=== PATIENT | male | born 1980 | race Caucasian/White ===

== ENCOUNTER 2016-12-09 17:13 | Inpatient (IN) | payer OTHER ==
[~2016-12-09] VITALS: Ht 177.8 cm; Wt 59.0 kg
[2016-12-09 23:35] LABS: *AMPHETAMINE, URINE POSITIVE (NEGATIVE); *BARBITURATE, URINE NEGATIVE (NEGATIVE); *CANNABINOID, URINE NEGATIVE (NEGATIVE); *COCCAINE, URINE NEGATIVE (NEGATIVE); *OPIATE, URINE POSITIVE (NEGATIVE); *PHENCYCLIDINE SCREEN,URINE NEGATIVE (NEGATIVE)
[2016-12-10] VITALS: BP 138/74
--- NOTE | 2016-12-10 | NUR ---
ADMISSION NOTE : Pt. is 36 years old male admitted on 12/09/2016 at 23:27 for opiates, methamphetamine dependency. Pt. reports PCN and Shellfish allergies, is on Regular diet, Full Code; pt. has history of visual hallucinations in 2014, no seizures history. Primary Care Provider is Dr. Light from [place], [place]. Pt. was able to provide urine drug screen : positive for opiates, amphetamine. Pt. stated to be in fdc for 1 month in the past, no hospitalizations or falls within past 12 months. Pt. is oriented to the unit and his room, encouraged to notify staff with any concerns. Pt. denies to have home medications. Upon admission YX=660/72, HR=68/min, Temp=98.0, RR=16 , breathing unlabored and even, FpI7=639% with RA, COWS=3, Tlzslz=[id number], Dgktaa=395. Pt. complains of increased level of anxiety= 4/10, mild muscle spasm.No SI/HI at this moment. Skin is dry, warm and intact, last BM on 12/09/2016. Education provided on Hep.C, Drugs overdose, seizures, medications side effects. Safety measures in place : bed on lowest position with side rails x2 up for safety, call light within reach. Will continue to monitor closely and offer help. Substance Abuse History is as follow : 1.Heroin 6 doses QD smoking since 08/2016, last dose used on 11/11/2016, using Heroin since 03/2016. 2.Methamphetamine 3 doses QW smoking/snorting since07/2016, last dose on 12/04/2016 , using since 2007. 3.Vicodin 100mg QD PO since 2014, last use on 12/08/2016. Using Vicodin since 2009. 4.Tobacco 20 cigarettes QD since 2012, last use on 12/09/2016 Past Medical History : Asthma since childhood, Anxiety, Depression per PCP. Tx History : This admission is first attempt for detoxication. Family History : HTN, DM, Asthma, CAD, ETOH abuse.
[2016-12-10] MEDS ORDERED: MAGNESIUM HYDROXIDE 30 ML LIQUID UDC PO PRN (00:45)
[2016-12-10] MEDS ORDERED: BUPRENORPHINE HCL 2 MG TAB.SUBL SL PRN (00:45)
[2016-12-10] MEDS ORDERED: DICYCLOMINE HCL 20 MG TABLET PO PRN (00:45)
[2016-12-10] MEDS ORDERED: LOPERAMIDE HCL 2 MG CAPSULE PO PRN ×2 (00:45)
[2016-12-10] MEDS ORDERED: HYDROXYZINE PAMOATE 25 MG CAPSULE PO PRN (00:45)
[2016-12-10] MEDS ORDERED: MIRALAX 17 GM POWD.PACK PO PRN (00:45)
[2016-12-10] MEDS ORDERED: IBUPROFEN 400 MG TABLET PO PRN (00:45)
[2016-12-10] MEDS ORDERED: ACETAMINOPHEN 325 MG TABLET PO PRN ×2 (00:45→17:15)
[2016-12-10] MEDS ORDERED: diphenhydrAMINE 50 MG CAPSULE PO PRN (00:45)
[2016-12-10] MEDS ORDERED: CLONIDINE HCL 0.1 MG TABLET PO PRN (00:45)
[2016-12-10] MEDS ORDERED: MAG HYDROX/AL HYDROX/SIMETH 30 ML LIQUID UDC PO PRN (00:45)
[2016-12-10] MEDS ORDERED: PROMETHAZINE HCL 25 MG/1 ML VIAL IM PRN (00:45)
[2016-12-10] MEDS ORDERED: ONDANSETRON ODT 4 MG TAB.RAPDIS SL PRN (00:45)
[2016-12-10 02:14] LABS: BASOPHILS # (AUTO) 0.1 K/uL (0.0-0.2); BASOPHILS % (AUTO) 0.7 % (0.0-2.0); EOSINOPHILS # (AUTO) 0.5 K/uL (0.0-0.7); EOSINOPHILS % (AUTO) 5.5 % (0.0-7.0); HEMATOCRIT 44.3 % (40.0-50.0); HEMOGLOBIN 14.8 g/dL (14.0-18.0); LYMPHOCYTES # (AUTO) 1.9 K/uL (0.8-4.8); LYMPHOCYTES % (AUTO) 22.6 % (20.5-51.5); MEAN CORPUSCULAR HEMOGLOBIN 29.2 uug (27.0-31.0); MEAN CORPUSCULAR HGB CONC 33 g/dL (32.0-37.0); MEAN CORPUSCULAR VOLUME 87.2 fL (82.0-92.0); MONOCYTES # (AUTO) 0.6 K/uL (0.1-1.30); MONOCYTES % (AUTO) 6.9 % (0.0-11.0); NEUTROPHILS # (AUTO) 5.3 K/uL (1.8-8.9); NEUTROPHILS % (AUTO) 64.3 % (38.5-71.5); PLATELET COUNT (AUTO) 217 K/uL (150-450); RED BLOOD CELL COUNT(AUTO) 5.08 MIL/uL (4.70-6.10); WHITE BLOOD COUNT (AUTO) 8.4 K/uL (4.0-11.2)
[2016-12-10 02:45] LABS: ETHANOL < 3 MG/DL (0-0)
[2016-12-10 02:57] LABS: ALANINE AMINOTRANSFERASE 27 U/L (16-63); ALBUMIN 4.1 g/dL (3.4-5.0); ALKALINE PHOSPHATASE 78 U/L (50-136); AMYLASE 68 U/L (25-115); ASPARTATE AMINOTRANSFERASE 18 U/L (15-37); BILIRUBIN,TOTAL 0.3 mg/dL (0.2-1.0); CALCIUM 8.4 mg/dL (8.5-10.1); CARBON DIOXIDE 32 mmol/L (21-32); CHLORIDE 105 mmol/L (98-107); CREATININE 0.8 mg/dL (0.6-1.3); GFR 109 mL/min (>60); GLUCOSE 87 mg/dL (74-106); MAGNESIUM 2.2 mg/dL (1.8-2.4); POTASSIUM 3.9 mmol/L (3.5-5.1); SODIUM SERUM 143 mmol/L (136-145); TOTAL PROTEIN, SERUM 7.6 g/dL (6.4-8.2); UREA NITROGEN, BLOOD 9 mg/dL (7-18)
--- NOTE | 2016-12-10 03:00 | NUR ---
PRN MOTRIN PRN Motrin p.o. given per patient c/o mild headache, 7/10 pain scale. Safety measures in place : bed on lowest position with side rails x2 up for safety, call light within reach. Will continue to monitor closely and offer help.
[2016-12-10 03:41] LABS: HIV-1 p24 ANTIGEN NON REACTIVE (NONREACTIVE); HIV-1/2 ANTIBODY NON REACTIVE (NONREACTIVE)
[2016-12-10 03:44] LABS: THYROID STIMULATING HORMONE 1.311 mIU/mL (0.358-3.740)
[2016-12-10] MEDS ORDERED: IBUPROFEN 400 MG TABLET ONE (03:45)
--- NOTE | 2016-12-10 03:46 | NUR ---
REASSESSMENT PRN DAWSON Pt. is able to rest quietly , states decreased level of pain to 3/10, RR=16, breathing unlabored and even. Safety measures in place : bed on lowest position with side rails x2 up for safety, call light within reach. Will continue to monitor closely and offer help.
[2016-12-10 03:47] LABS: LIPASE 215 U/L (73-393)
[2016-12-10 04:00] VITALS: BP 137/76
--- NOTE | 2016-12-10 06:53 | NUR ---
END OF SHIFT Pt. is 36 years old male admitted on 12/09/2016 at 23:27 for opiates, methamphetamine dependency. Pt. reports PCN and Shellfish allergies, is on Regular diet, Full Code; pt. has history of visual hallucinations in 2014, no seizures history. Pt remains compliant with the treatment plan. Pt denies nausea, vomiting and diarrhea. PRN MOTRIN given during my shift. V/S remain WNL. RR=16, even and unlabored, lungs clear upon auscultation, abdomen soft and non- distended. Pt denies nausea, vomiting and diarrhea. LAST COWS= 3 at 0400 , JJFMYX=133 ml, voided x 3, slept 3 hours. Safety measures in place : bed on lowest position with side rails x2 up for safety, call light within reach. Will continue to monitor closely and offer help.
--- NOTE | 2016-12-10 07:15 | NUR ---
start of shift note: pt is a new admission, and is admitted to [facility] for opiate/meth withdrawal/dependence. pt is in stable condition at this time. will monitor pt for any changes. will assist pt in managing withdrawal symptoms. pt's last cows was a 3 and slept for 3 hrs. will re-orientate pt to unit and encourage pt to join activities and groups.
--- NOTE | 2016-12-10 09:16 | NUR ---
PRN ADMINISTRATION: PT STATED HE STARTED FEELING SICK, PT WITH COMPLAINTS OF GENERALIZED BODY PAIN, 9/10, CHILLS, AND NAUSEA. PT'S COW IS 12. AT THIS TIME WILL RE-ASSESS PT AND INFORM MD.
[2016-12-10] MEDS: MULTIVITAMINS,THERAPEUTIC TABLET PO SCH (09:18)
[2016-12-10 09:21] VITALS: BP 108/78
--- NOTE | 2016-12-10 09:45 | NUR ---
PRN RE-ASSESSMENT: SUBUTEX WAS EFFECTIVE, PT WAS PLACED ON A MODIFIED 4 DAY SUBUTEX TAPER. PT TOLERATED SUBUTEX WELL NO A/R NOTED.
[2016-12-10 14:08] VITALS: BP 110/78
[2016-12-10] MEDS ORDERED: ACETAMINOPHEN ES 500 MG TABLET PO SCH (15:00)
[2016-12-10] MEDS ORDERED: GABAPENTIN 300 MG CAPSULE PO SCH (15:00)
[2016-12-10] MEDS: LIDOCAINE 5% PATCH TD SCH (15:33)
[2016-12-10] MEDS: BUPRENORPHINE HCL 2 MG TAB.SUBL SL SCH ×2 (15:33→21:31)
[2016-12-10] MEDS ORDERED: ALBUTEROL SULFATE 2.5 MG/3 ML NEBU NEB PRN (15:45)
[2016-12-10 17:35] VITALS: BP 126/73
--- NOTE | 2016-12-10 18:26 | NUR ---
END OF SHIFT NOTE: PT IS A 36 YEAR OLD MALE ADMITTED TO [facility] FOR OPIATE/METH WITHDRAWAL/DEPENDENCE. PT IS IN STABLE CONDITION AT THIS TIME NO S/S OF PAIN OR DISCOMFORT. PT WAS STARTED ON A 4 MODIFIED SUBUTEX TAPER. PT IS TOLERATING SUBUTEX TAPER WELL NO A/R REACTION NOTED. PT'S LAST COWS IS 2. WILL ENDORSE PT TO FIELD ADJUSTER NURSE.
[2016-12-10] MEDS: METHOCARBAMOL 750 MG TABLET PO PRN (18:39)
--- NOTE | 2016-12-10 18:39 | NUR ---
PRN ADMINISTRATION: PT WITH COMPLAINTS OF LOWER BACK PAIN 05/01, HEAT PACK AND ROBAXIN WAS ADMINISTERED WILL ENDORSE TO CLINICAL LABORATORY AIDE EFFECTIVENESS.
--- NOTE | 2016-12-10 19:10 | NUR ---
START OF SHIFT : Pt. is 36 years old male admitted on 12/09/2016 at 23:27 for opiates, methamphetamine dependency. Pt. reports PCN and Shellfish allergies, is on Regular diet, Full Code; pt. has history of visual hallucinations in 2014, no seizures history. LAST COWS= 2 at 1600 ,Pt remains compliant with the treatment plan. Pt denies nausea, vomiting and diarrhea. No PRNs were given during my shift. V/S remain WNL. RR=16, even and unlabored, lungs clear upon auscultation, abdomen soft and non- distended. Pt denies nausea, vomiting and diarrhea. Safety measures in place : bed on lowest position with side rails x2 up for safety, call light within reach. Will continue to monitor closely and offer help.
--- NOTE | 2016-12-10 19:34 | NUR ---
REASSESSMENT STEPHANY Patient states decreased level of pain , 3/10, decreased level of muscle spasm, is resting quietly, RR=16 , breathing unlabored and even. Safety measures in place : bed on lowest position with side rails x2 up for safety, call light within reach. Will continue to monitor closely and offer help.
[2016-12-10 20:00] VITALS: BP 140/85
--- NOTE | 2016-12-11 06:49 | NUR ---
END OF SHIFT NOTE : Pt. is 36 years old male admitted on 12/09/2016 at 23:27 for opiates, methamphetamine dependency. Pt. reports PCN and Shellfish allergies, is on Regular diet, Full Code; pt. has history of visual hallucinations in 2014, no seizures history. Pt remains compliant with the treatment plan. V/S remain WNL. RR=16, even and unlabored, lungs clear upon auscultation, abdomen soft and non- distended. Pt denies nausea, vomiting and diarrhea. LAST COWS= 2 at 0400 , XSYIAL=650 ml, voided x 1, slept 7 hours. Safety measures in place : bed on lowest position with side rails x2 up for safety, call light within reach. Will continue to monitor closely and offer help.
--- NOTE | 2016-12-11 07:30 | NUR ---
START OF SHIFT NOTE: RECEIVED PT FROM CRADLE SLIDE MAKER NURSE, PT IS IN STABLE CONDITION AT THIS TIME. PT WITH CONSTANT BACK PAIN.PT IS ADMITTED TO [facility] FOR OPIATE/METH WITHDRAWAL/DEPENDENCE. PT LAST COWS WAS 2 AND SLEPT 7 HRS. PT IS TOLERATING TAPER WELL NO A/R NOTED. WILL CONTINUE TO MONITOR PT FOR ANY CHANGES AND WILL CONTINUE TO MEET PTS NEEDS
[2016-12-11] MEDS: METHOCARBAMOL 750 MG TABLET PO PRN (07:52)
--- NOTE | 2016-12-11 07:52 | NUR ---
PRN ADMINISTRATION: ROBAXIN WAS ADMINISTERED PT WITH DISCOMFORT AND PAIN TO BACK AREA, PAIN SCALE 6/10, HEAT PACK WAS ALSO GIVEN TO PT TO ASSISTANCE WITH RELIEVING PAIN.
--- NOTE | 2016-12-11 08:30 | NUR ---
PRN ADMINISTRATION: PT STATED WITH MINIMAL HELP PAIN IS AT 4/10. STATED HE WILL WAIT FOR LIDOCAINE PATCH AND SUBUTEX TO SEE IF IT WILL ASSIST WITH PAIN.
[2016-12-11 09:00] VITALS: BP 109/68
[2016-12-11] MEDS ORDERED: BUPRENORPHINE HCL 2 MG TAB.SUBL SL SCH (09:00)
[2016-12-11] MEDS ORDERED: TUBERCULIN,PURIF.PROT.DERIV. 5 TU/0.1 ML TEST ID ONE (09:00)
[2016-12-11] MEDS: MULTIVITAMINS,THERAPEUTIC TABLET PO SCH (09:09)
[2016-12-11] MEDS: LIDOCAINE 5% PATCH TD SCH (09:10)
[2016-12-11] MEDS: ESCITALOPRAM OXALATE 10 MG TABLET PO SCH (12:12)
[2016-12-11] MEDS: KETOROLAC TROMETHAMINE 30 MG INJ IM PRN (12:13)
--- NOTE | 2016-12-11 12:13 | NUR ---
PRN TORADOL ADMINISTERED: PT STATED HE TRIED TO MANAGE THE PAIN, BUT CAN NO LONGER TAKE IT, PAIN SCALE 10/10. PT STATED AFTER HEAT PACK IS TAKEN OFF, HIS BACK IS STIFF AND HE FEELS HE CANNOT MOVE OR AMBULATE
--- NOTE | 2016-12-11 13:00 | NUR ---
PRN RE-ASSESSMENT: PT STATED TORADOL WAS EFFECTIVE PT WAS ABLE TO JOIN [facility] PAIN SCALE 1/10
[2016-12-11 13:33] VITALS: BP 112/86
[2016-12-11] MEDS: BUPRENORPHINE HCL 2 MG TAB.SUBL SL SCH ×2 (15:13→20:57)
[2016-12-11] MEDS: BACLOFEN 20 MG TABLET PO SCH ×2 (15:13→20:57)
[2016-12-11] MEDS: ACETAMINOPHEN 325 MG TABLET PO SCH ×2 (15:13→20:56)
[2016-12-11] MEDS: GABAPENTIN 300 MG CAPSULE PO SCH ×2 (15:13→20:56)
[2016-12-11 15:35] LABS: HCV AB <0.1 s/co ratio (0.0-0.9); HEPATITIS B CORE AB, IgM Negative (Negative); HEPATITIS B SURFACE AG Negative (Negative)
[2016-12-11 17:52] VITALS: BP 119/68
--- NOTE | 2016-12-11 18:49 | NUR ---
END OF SHIFT NOTE: PT IS A 36 YEAR OLD MALE ADMITTED TO [facility] FOR OPIATE WITHDRAWAL/DEPENDENCE. PT IS TOLERATING TAPER WELL. PT HAS HX OF CHRONIC BACK PAIN. AND IS BEING MANAGED WITH MULTIPLE MEDICATIONS. AT THIS TIME PT HAS A HEATING PACK ON HIS LOWER BACK. PTS LAST COWS IS O. PT STATES TORADOL,BACLOFEN,TYLENOL, HAVE BEEN EFFECTIVE. WILL ENORSE PT TO HOUSEKEEPER CLEANING COOKING NURSE.
--- NOTE | 2016-12-11 19:35 | NUR ---
START OF SHIFT NOTE Pt is a 36 y/o male admitted for Heroin, Methamphetamine and Vicodin dependence and use. Pt has allergies to PCN and shellfish and reported a PMH of asthma, anxiety, and depression. Per day shift nurse pt was placed on a 4 day Subutex taper (day 2) and is tolerating medication well, with no s/e or a/r reported. Pt received a Toradol IM PRN for a c/o pain during the day shift. Last COW: 6 (1600). At this time pt is calm, cooperative, and compliant with plan of care. Pt denies any pain/discomfort at this time. Pt is encouraged to notify staff of any changes in condition or of any concerns. Pt verbalized an understanding. All safety measures in place; side rails up x 2, bed locked and in low position, and call light within reach. Will continue to monitor.
[2016-12-11 20:00] VITALS: BP 123/68
--- NOTE | 2016-12-12 | NUR ---
COW AND VITALS REFUSED Pt refused to be assessed and have vitals taken at this time. Pt was encouraged x3 with risks and benefits explained, but the pt still declined. Pt was encouraged to notify staff of any changes in condition or of any concerns. Pt verbalized an understanding. All safety measures in place. Will continue to monitor. Addendum: 12/12/16 at 0049 by HORTENCIA GANT LVN Amended: Links added.
--- NOTE | 2016-12-12 04:00 | NUR ---
COW AND VITALS REFUSED Pt refused to be assessed and have vitals taken at this time. Pt was encouraged x 3 with risks and benefits explained but the pt still declined. All safety measures in place. Will continue to monitor. Addendum: 12/12/16 at 0651 by HORTENCIA GANT LVN Amended: Links added.
--- NOTE | 2016-12-12 07:12 | NUR ---
END OF SHIFT NOTE Pt is a 36 y/o male admitted for Heroin, Methamphetamine and Vicodin dependence and use. Pt has allergies to PCN and shellfish and reported a PMH of asthma, anxiety, and depression. Pt was placed on a 4 day Subutex taper (day 3) and is tolerating medication well, with no s/e or a/r reported. Pt didn't receive any PRNS during the shift. Last COW:0 (1999). Pt slept for a total of 9 hours. All safety measures in place; side rails up x 2, bed locked and in low position, and call light within reach. Endorsed to the oncoming nurse.
--- NOTE | 2016-12-12 07:45 | NUR ---
START OF SHIFT Pt is a 36 yr old male, AA&Ox4. Pt was admitted on 12/09/16 for Opiate Dependence and is on 4 day Subutex taper as ordered. Medication matthew well. Pt is full code, regular diet and allergies to PCN and Shellfish. Pt reports of PMH of Asthma, Anxiety and Depression. No PRN's were given during the night. Pt slept for 9 hrs. Last COWS score was 0. Pt is c/o back pain 7/10. Facial grimacing is observed. Pt is on Baclofen and Tylenol routinely in the morning. Will f/u with eMAR. Skin is intact, warm and dry to touch. No tremors seen or felt. Pt denies any n/v. Safety precautions observed. Encouraged increase fluid intake. Will continue to monitor.
[2016-12-12 08:00] VITALS: BP 129/75
[2016-12-12] MEDS: BUPRENORPHINE HCL 2 MG TAB.SUBL SL SCH ×3 (09:10→21:13)
[2016-12-12] MEDS: GABAPENTIN 300 MG CAPSULE PO SCH ×3 (09:10→21:13)
[2016-12-12] MEDS: BACLOFEN 20 MG TABLET PO SCH ×3 (09:10→21:11)
[2016-12-12] MEDS: ESCITALOPRAM OXALATE 10 MG TABLET PO SCH (09:10)
[2016-12-12] MEDS: LIDOCAINE 5% PATCH TD SCH (09:11)
[2016-12-12] MEDS: MULTIVITAMINS,THERAPEUTIC TABLET PO SCH (09:11)
[2016-12-12] MEDS: ACETAMINOPHEN 325 MG TABLET PO SCH ×3 (09:11→21:11)
[2016-12-12] MEDS: KETOROLAC TROMETHAMINE 30 MG INJ IM PRN (10:15)
--- NOTE | 2016-12-12 10:17 | NUR ---
PRN MEDICATION GIVEN Pt continues to c/o mid lower back pain 05/01. Facial grimacing and rubbing affected area is observed. Pt was given Baclofen 20mg and Tylenol 650mg PO routinely at 0900. Medication was not effective. Pt received a warm compress to apply to lower back. Pt continued to c/o lower back pain 05/01. Toradol 30mg IM PRN was given. Medication matthew well. Encouraged increase fluid intake. Will continue to monitor.
--- NOTE | 2016-12-12 11:20 | NUR ---
PRN RE-ASSESSMENT Toradol PRN was effective. Pt stated, "I feel much better". pain level subsided to 4/10. Encouraged increase fluid intake.
[2016-12-12 12:00] VITALS: BP 112/68
[2016-12-12 16:00] VITALS: BP 137/76
--- NOTE | 2016-12-12 18:58 | NUR ---
END OF SHIFT Pt is a 36 yr old male, AA&Ox4. Pt was admitted on 12/09/16 for Opiate Dependence and is on 4 day Subutex taper as ordered. Medication matthew well. Pt is full code, regular diet and allergies to PCN and Shellfish. Pt reports of PMH of Asthma, Anxiety and Depression. Pt has been cooperative with plan of care and attended group sessions. Pt was cooperative with medication regime. Toradol 30mg IM PRN was given in the morning for severe lower back pain. Medication was effective. Last COWS score was 3. Pt continues to c/o mild pain on lower back but is able to cope with pain. Warm compress was given to impregnator and drier helper with pain. Encouraged increase fluid intake. Skin is intact, warm and dry to touch. No tremors seen or felt. Pt denies any n/v. Safety precautions observed. Encouraged increase fluid intake.
[2016-12-12 20:00] VITALS: BP 109/60
--- NOTE | 2016-12-12 20:00 | NUR ---
START OF SHIFT NOTE PATIENT IS A 36 YEAR OLD MALE, ADMITTED ON 12/09/16 FOR OPIATE /METH DEPENDENCE. PATIENT IS FUL CODE AND ALLERGIC TO PENICILLIN /SHELLFISH. PATIENT REPORTS PMH OF ASTHMA, ANXIETY AND DEPRESSION. PATIENT IS ON HEROIN (SMOKING ) 6 DOSES SINCE 08/2016, METH (SMOKING/SNORTING) 3 DOSES SINCE 07/2016, VICODIN 100 MG SINCE 2014 AND TOBACCO 20 CIGARETTE SINCE 2012. PATIENT IS ON 3RD OF HER 4 DAY SUBUTEX TAPER .FIRST TIME IN TREATMENT CENTER. SKIN INTACT. PATIENT WAS GIVEN PRN TORADOL . LAST COWS 3. PATIENT ALERT AND ORIENTED X 4. RESPIRATION EVEN AND UNLABORED. NO SHORTNESS OF BREATH. PATIENT C/O ANXIETY AND SWEATING . DENIES PAIN. PATIENT ATTENDED GROUPS , HAD BM , ATE MEALS WITH GOOD APPETITE AND DRINKING FLUIDS WELL. SAFETY MEASURES IN PLACE. CALL LIGHT IN REACH. WILL CONTINUE TO MONITOR.
--- NOTE | 2016-12-13 | NUR ---
COWS/VS PATIENT REFUSED VS. UNABLE TO COMPLETER COWS ASSESSMENT . RESPIRATION EVEN AND UNLABORED. RR 15. NO S/S OF DISTRESS. SAFETY MEASURES IN PLACE. CALL LIGHT IN REACH. WILL CONTINUE TO MONITOR.
--- NOTE | 2016-12-13 07:08 | NUR ---
END OF SHIFT NOTE PATIENT IS A 36 YEAR OLD MALE, ADMITTED ON 12/09/16 FOR OPIATE /METH DEPENDENCE. PATIENT IS FUL CODE AND ALLERGIC TO PENICILLIN /SHELLFISH. PATIENT REPORTS PMH OF ASTHMA, ANXIETY AND DEPRESSION. PATIENT IS ON HEROIN (SMOKING ) 6 DOSES SINCE 08/2016, METH (SMOKING/SNORTING) 3 DOSES SINCE 07/2016, VICODIN 100 MG SINCE 2014 AND TOBACCO 20 CIGARETTE SINCE 2012. PATIENT IS ON 3RD OF HER 4 DAY SUBUTEX TAPER .FIRST TIME IN TREATMENT CENTER. SKIN INTACT. PATIENT ALERT AND ORIENTED X 4. RESPIRATION EVEN AND UNLABORED. NO SHORTNESS OF BREATH. PATIENT C/O ANXIETY AND SWEATING . DENIES PAIN. PATIENT ATTENDED GROUPS , HAD BM , ATE MEALS WITH GOOD APPETITE AND DRINKING FLUIDS WELL. SAFETY MEASURES IN PLACE. PATIENT DID NO REQUIRE ANY PRN MEDICATION DURING SHIFT. PATIENT STATES THAT MEDICATION ARE EFFECTIVE IN CONTROLLING HIS WITHDRAWAL SYMPTOMS. CALL LIGHT IN REACH. WILL CONTINUE TO MONITOR. SLEPT 6 HOURS. FLUID INTAKE 855 ML. VOIDED X 4 . NO BM . LAST COWS 4.
--- NOTE | 2016-12-13 07:09 | NUR ---
Start of Shift Notes: Received patient in his room. Alert and oriented x 4. Verbally responsive. Able to make his needs known. Respirations even and unlabored. No SOB noted. Skin warm and dry to touch. Abdomen soft and non-distended. BS (+) in all 4 quadrants. No complains of N/V/D or constipation noted. Bladder non-distended. Voids independently with no complains of dysuria. Ambulatory ad stormy with steady gait. Patient is a 36 year old male admitted for opiate dependence who was placed on a 4-day Subutex taper as ordered. No adverse reactions noted. Has past medical hx of asthma, anxiety and depression. Allergic to PCN and shellfish. FULL CODE. Regular diet. On fall and seizure precautions. Educated patient on his current plan of care for the day and his medication regimen. Encouraged oral fluid intake and encouraged group participation to learn new skills to prevent relapse. Will continue to monitor closely.
[2016-12-13 08:00] VITALS: BP 123/81
[2016-12-13] MEDS: ACETAMINOPHEN 325 MG TABLET PO SCH ×3 (08:55→22:02)
[2016-12-13] MEDS: ESCITALOPRAM OXALATE 10 MG TABLET PO SCH (08:55)
[2016-12-13] MEDS: BACLOFEN 20 MG TABLET PO SCH ×3 (08:55→22:02)
[2016-12-13] MEDS: MULTIVITAMINS,THERAPEUTIC TABLET PO SCH (08:55)
[2016-12-13] MEDS: GABAPENTIN 300 MG CAPSULE PO SCH ×3 (08:55→22:02)
[2016-12-13] MEDS ORDERED: BUPRENORPHINE HCL 2 MG TAB.SUBL SL SCH (09:00)
[2016-12-13] MEDS: LIDOCAINE 5% PATCH TD SCH (09:00)
[2016-12-13] MEDS ORDERED: NAPROXEN 500 MG TABLET PO PRN (11:00)
[2016-12-13 12:00] VITALS: BP 130/72
[2016-12-13 14:45] LABS: *AMPHETAMINE, URINE NEGATIVE (NEGATIVE); *BARBITURATE, URINE NEGATIVE (NEGATIVE); *CANNABINOID, URINE NEGATIVE (NEGATIVE); *COCCAINE, URINE NEGATIVE (NEGATIVE); *OPIATE, URINE POSITIVE (NEGATIVE); *PHENCYCLIDINE SCREEN,URINE NEGATIVE (NEGATIVE)
[2016-12-13 16:00] VITALS: BP 127/75
[2016-12-13] MEDS ORDERED: Gabapentin PO (17:24)
[2016-12-13] MEDS ORDERED: Acetaminophen PO (17:24)
[2016-12-13] MEDS ORDERED: Baclofen PO (17:24)
[2016-12-13] MEDS ORDERED: Naproxen PO (17:24)
[2016-12-13] MEDS ORDERED: DIPH50CA37 PO (17:24)
[2016-12-13] MEDS ORDERED: METH-33 PO (17:24)
[2016-12-13] MEDS ORDERED: HYDR-3895 PO (17:24)
[2016-12-13] MEDS ORDERED: LIDO30AD10 TD (17:24)
--- NOTE | 2016-12-13 19:34 | NUR ---
End of Shift Notes: Patient is a 36 year old male admitted for opiate and methamphetamine dependence who was placed on a 4-day Subutex taper as ordered. No adverse reactions noted. Patient completed his taper. Tolerated well. Has past medical hx of asthma, anxiety, and depression. Prior to admission, patient was using 6 doses of Heroin, 3 doses of methamphetamine and 100 mg of Vicodin. Allergic to PCN and Shellfish. FULL CODE. Regular diet. On fall and seizure precautions. VS monitored q 4 hours. No significant abnormalities noted in the patients VS. Withdrawal symptoms were closely monitored. Patient presented with anxiety. Initial COWS 4. Last COWS 2. Per patient, Subutex has been helping him with his withdrawal symptoms. UDS in and resulted. Patient with discharge plans tomorrow. aware. Participated in group and therapy sessions. Safety measures in placed at all times. All needs met and attended. Will continue to monitor closely.
[2016-12-13 20:00] VITALS: BP 130/80
--- NOTE | 2016-12-13 20:00 | NUR ---
START OF SHIFT NOTE PATIENT IS A 36 YEAR OLD MALE, ADMITTED ON 12/09/16 FOR OPIATE /METH DEPENDENCE. PATIENT IS FULL CODE, ALLERGIC TO PENICILLIN AND SHELLFISH. PATIENT REPORTS PMH OF ASTHMA, ANXIETY AND DEPRESSION. PATIENT SMOKES HEROIN "6 DOSES SINCE 08/2016, SMOKES/SNORTS METH "3 DOSES " SINCE 07/2016, VICODIN 100 MG SINCE 2014 AND TOBACCO 20 CIGARETTE SINCE 2012. PATIENT WAS PLACED ON 4 DAY SUBUTEX TAPER, COMPLETED. PATIENT IS TO BE DISCHARGE TOMORROW. PATIENT IS ON FALL PRECAUTION. FIRST TIME IN TREATMENT CENTER. SKIN INTACT. PATIENT DID NOT REQUIRE ANY PRN MEDICATION DURING THE DAY. PATIENT ALERT AND ORIENTED X 4. RESPIRATION EVEN AND UNLABORED . NO SHORTNESS OF BREATH. NO N/V. PATIENT STATES HE WAS BUSY THE WHOLE DAY, HE ATTENDED ALL THE GROUPS. EAT AND DRINKING FLUIDS WELL . PATIENT SAFETY MEASURES IN PLACE. CALL LIGHT IN REACH. WILL CONTINUE TO MONITOR
--- NOTE | 2016-12-14 | NUR ---
COWS/VS PATIENT PREVIOUSLY REQUESTED NOT TO WAKE HER UP FOR VS. UNABLE TO COMPLETE COWS ASSESSMENT. PATIENT IS DISCHARGING TODAY AND WANTS TO SLEEP MORE. NO S/S OF DISTRESS. RESPIRATION EVEN AND UNLABORED. RR 16. SAFETY MEASURES IN PLACE. CALL LIGHT IN REACH. WILL CONTINUE TO MONITOR.
--- NOTE | 2016-12-14 04:00 | NUR ---
COWS/VS PATIENT PREVIOUSLY REQUESTED NOT TO WAKE HER UP FOR VS. UNABLE TO COMPLETE COWS ASSESSMENT. PATIENT IS DISCHARGING TODAY AND WANTS TO SLEEP MORE. NO S/S OF DISTRESS. RESPIRATION EVEN AND UNLABORED. RR 16. NO S/S OF DISTRESS. SAFETY MEASURES IN PLACE. CALL LIGHT IN REACH. WILL CONTINUE TO MONITOR.
--- NOTE | 2016-12-14 07:16 | NUR ---
END OF SHIFT NOTE PATIENT HAD UNEVENTFUL EVENT DURING THE NIGHT. PATIENT IS A 36 YEAR OLD MALE, ADMITTED ON 12/09/16 FOR OPIATE /METH DEPENDENCE. PATIENT IS FULL CODE, ALLERGIC TO PENICILLIN AND SHELLFISH. PATIENT REPORTS PMH OF ASTHMA, ANXIETY AND DEPRESSION. PATIENT SMOKES HEROIN "6 DOSES SINCE 08/2016, SMOKES/SNORTS "3 DOSES " SINCE 07/2016, VICODIN 100 MG SINCE 2014 AND TOBACCO 20 CIGARETTE SINCE 2012. PATIENT WAS PLACED ON 4 DAY SUBUTEX TAPER, COMPLETED. TOLERATED WELL. PATIENT IS TO BE DISCHARGE TODAY. PATIENT IS ON FALL PRECAUTION. FIRST TIME IN TREATMENT CENTER. SKIN INTACT. PATIENT ALERT AND ORIENTED X 4. RESPIRATION EVEN AND UNLABORED . NO SHORTNESS OF BREATH, HE ATTENDED ALL THE GROUPS. EAT AND DRINKING FLUIDS WELL . PATIENT DID NOT REQUIRE ANY PRN MEDICATIONS DURING SHIFT. PATIENT COMPLIANT WITH MEDICATIONS AND TREATMENT PLAN. PATIENT SAFETY MEASURES IN PLACE. CALL LIGHT IN REACH. WILL CONTINUE TO MONITOR . SLEPT 5 HOURS. FLUID INTAKE 1,300 ML. VOIDED X 3. NO BM. LAST COWS 1.
--- NOTE | 2016-12-14 07:30 | NUR ---
START OF SHIFT Received report from retail shift supervisor nurse. 36 year old male patient admitted on 12/09/16 for opiate and methamphetamine dependence. Pt is A/O x4. Pt has completed modified 4 day Subutex taper and is medically cleared for d/c. Pt V/S remain WNL throughout shift. RR even and unlabored. No acute s/s of withdrawal noted at this time. Pt reports allergies to PCN and shellfish. No PRN medications were needed or administered throughout night. Most recent COWS 1. Pt slept for 5 hours. Pt remains stable and safe throughout hospitalizations. All needs met at this time. Will continue to monitor.
[2016-12-14 08:04] VITALS: BP 110/67
[2016-12-14] MEDS: ESCITALOPRAM OXALATE 10 MG TABLET PO SCH (08:43)
[2016-12-14] MEDS: BACLOFEN 20 MG TABLET PO SCH (08:43)
[2016-12-14] MEDS: MULTIVITAMINS,THERAPEUTIC TABLET PO SCH (08:43)
[2016-12-14] MEDS: ACETAMINOPHEN 325 MG TABLET PO SCH (08:43)
[2016-12-14] MEDS: GABAPENTIN 300 MG CAPSULE PO SCH (08:43)
[2016-12-14] MEDS: LIDOCAINE 5% PATCH TD SCH (08:44)
--- NOTE | 2016-12-14 10:12 | NUR ---
D/C NOTE Pt is A/O x4. V/S remain WNL. Pt denies SI/HI or hallucinations. Pt shows no s/s of acute withdrawal at this time, and is stable. has medically cleared pt for d/c . Education on Hepatitis C, smoking cessation and medication side effects provided. Pt verbalizes understanding. All pt belongings are in belonging bag, pt did not have any home medications. Refuses FLU and PNU vaccination. Pt is being accompanied by QUALITY CHECKER at this time to be transported to rehab. All needs met.
== END 2016-12-14 10:12 | disposition other institution (70) | DRG 895 ==
LOC: SRC 22:35
PROVIDERS: ADMIT Internal Medicine; ATTEND Internal Medicine
PROC: HZ2ZZZZ Detoxification Services for Substance Abuse Treatment (ICD-10-PCS; principal; 2016-12-09)
PROC: HZ31ZZZ Individual Counseling for Substance Abuse Treatment, Behavioral (ICD-10-PCS; 2016-12-11)
PROC: HZ41ZZZ Group Counseling for Substance Abuse Treatment, Behavioral (ICD-10-PCS; 2016-12-12)
DX: F11.23 Opioid dependence with withdrawal (principal); G89.21 Chronic pain due to trauma; S33.100 Subluxation of unspecified lumbar vertebra; X58.XXXS Exposure to other specified factors, sequela; Z88.0 Allergy status to penicillin; Z81.8 Family history of other mental and behavioral disorders; Z81.3 Family history of other psychoactive substance abuse and dependence; F41.9 Anxiety disorder, unspecified; J45.20 Mild intermittent asthma, uncomplicated; F17.210 Nicotine dependence, cigarettes, uncomplicated; F15.10 Other stimulant abuse, uncomplicated
CPT/HCPCS: 36415; 70030-TC; 71010; 80307; 80324; 80361; 83690; 83735; 84443; 85025; 86592; 86705; 86803; 87340; 87806; G6040-TC; J1885